=== PATIENT | female | born 1955 | race Caucasian/White ===

== ENCOUNTER 2016-12-11 14:08 | Day surgery (SDC) | payer MEDICAID, OTHER ==
[~2016-12-11] VITALS: Ht 152.4 cm; Wt 78.5 kg
[2016-12-11 14:56] VITALS: Ht 152.4 cm; Wt 78.5 kg
[2016-12-11 15:27] VITALS: BP 151/80; PULSE 64; RESP 18
[2016-12-11] MEDS ORDERED: FENTAnyl 50 MCG/ML VIAL ONE (15:53)
[2016-12-11] MEDS ORDERED: MIDAZOLAM 1 MG/ML 2 ML INJ ONE (15:54)
--- NOTE | 2016-12-11 15:58 | OPPN ---
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
--- NOTE | 2016-12-12 09:40 | GILP ---
DATE OF PROCEDURE: 12/11/2016 PREOPERATIVE DIAGNOSIS: Patient had rectal pain. She felt a mass in the rectum. PROCEDURE PERFORMED: 1. Colonoscopy. 2. Biopsy of the ileocecal valve. POSTOPERATIVE DIAGNOSIS: Prominent ileocecal valve, lipoma suspected. Rectum, no mass, but grade 1 external hemorrhoids. Rest of the colon normal. DESCRIPTION OF PROCEDURE: Patient was put in left lateral decubitus. After obtaining informed consent, patient was sedated and monitored on oximetry, EKG, blood pressure. She was given 2 mg IV Versed initially and 50 mcg of fentanyl. I then advanced a pediatric Olympus video colonoscope all the way to cecum. Ileocecal was quite prominent and this had pillow sign positive, very soft, indicating this is lipoma possibly, multiple biopsies were done and examination of the ascending colon, cecum otherwise unremarkable. Hepatic flexure, transverse colon normal. Descending colon normal. Sigmoid colon, rectum normal. In the rectum, rectal exam digitally also done again, no mass was felt. Some external hemorrhoids, grade 1 noted. Retroflexion also done, no mass was seen. Upon removal of scope, patient had no complication. If symptoms continue, will do a CT scan. Meanwhile, follow in 2 weeks for biopsy report of the ileocecal valve and repeat colonoscopy in five years. Dictated By: Guanako Steve MD /any/colton /Document#: [id number] ; Dr. Paul Tinsley
== END 2016-12-11 16:15 | disposition home or self-care (01) ==
LOC: GIL 14:08
PROVIDERS: ATTEND Internal Medicine
DX: K64.4 Residual hemorrhoidal skin tags (principal); E78.5 Hyperlipidemia, unspecified
CPT/HCPCS: 45380; 88305; J2250; J3010; Z7610

== ENCOUNTER 2018-06-11 10:41 | Emergency (ER) | payer OTHER ==
[~2018-06-11] VITALS: Ht 160 cm; Wt 82.6 kg
[2018-06-11 11:09] VITALS: Ht 160 cm; Wt 82.6 kg
[2018-06-11 14:17] VITALS: BP 155/66; PULSE 60; RESP 16
[2018-06-11] MEDS ORDERED: ASPIRIN 81 MG TAB PO STA (14:31)
[2018-06-11] MEDS ORDERED: MECLIZINE 12.5 MG TAB PO ONE (15:00)
[2018-06-11] MEDS ORDERED: DONE5TAB53 PO (16:02)
[2018-06-11] MEDS ORDERED: ATOR40TA68 PO (16:02)
[2018-06-11] MEDS ORDERED: BENA10TA4 PO (16:02)
[2018-06-11] MEDS ORDERED: MECL12.574 PO (16:20)
--- NOTE | 2018-06-11 16:21 | ERD ---
ER Documentation Chief Complaint Chief Complaint dizziness and chest pain this morning at 0400, HPI 62-year-old female with a history of hypertension presenting with acute onset of dizziness that started this morning when she woke up around 4 AM. She describes the dizziness as room spinning with difficulty balancing. The dizziness has been going on with position change or with movement. When she sits or lays still, she does not feel dizzy at all. She did have one episode of chest discomfort that lasted for a few hours in the center of her chest that she does not describe as pain but that is described as discomfort. She denies any associated shortness of breath or diaphoresis. She did have multiple episodes of nonbloody and nonbilious vomiting. Denies diarrhea or constipation. No tenderness, focal weakness or numbness, vision disturbance ROS All systems reviewed and are negative except as per history of present illness. Medications Home Meds Active Scripts Meclizine Hcl* (Antivert*) 12.5 Mg Tab, 25 MG PO Q6H PRN for DIZZINESS, #20 TAB Prov:MARCUS CARLSON MD 06/11/18 Reported Medications Donepezil* (Aricept*) 5 Mg Tablet, 5 MG PO BID, TAB 06/11/18 Benazepril Hcl* (Benazepril Hcl*) 10 Mg Tablet, 10 MG PO DAILY, #30 TAB 06/11/18 Atorvastatin* (Atorvastatin*) 40 Mg Tablet, 40 MG PO QHS, #30 TAB 06/11/18 Discontinued Reported Medications [None] No Conflict Check 12/11/16 Allergies Allergies: Coded Allergies: No Known Allergy (Unverified , 06/11/18) PMhx/Soc History of Surgery: Yes (TUBAL LIGATION) Anesthesia Reaction: No Hx Neurological Disorder: No Hx Respiratory Disorders: No Hx Cardiac Disorders: Yes (HLD) Hx Psychiatric Problems: No Hx Miscellaneous Medical Probl: Yes (early dementia) Hx Alcohol Use: No Hx Substance Use: No Hx Tobacco Use: No Smoking Status: Never smoker FmHx Family History: No diabetes Physical Exam Vitals Vital Signs Date Temp Pulse Resp B/P (MAP) Pulse Ox O2 O2 Flow FiO2 Time Delivery Rate 06/11/18 60 16 155/66 96 Room Air 14:17 (95) 06/11/18 97.7 56 18 137/87 99 11:09 (104) Physical Exam Const: No acute distress, well-appearing, nontoxic Head: Atraumatic Eyes: Normal Conjunctiva, PERRLA, EOMI, no nystagmus ENT: Normal External Ears, Nose and Mouth. Neck: Full range of motion. No meningismus. Resp: Clear to auscultation bilaterally Cardio: Regular rate and rhythm, no murmurs. 2+ distal pulses in all 4 extremities Abd: Soft, non tender, non distended. Normal bowel sounds Skin: No petechiae or rashes Back: No midline or flank tenderness Ext: No cyanosis, or edema Neur: Awake and alert, oriented x3, cranial nerves intact, strength and sensations intact in all 4 extremities. Gait not initially tested as the patient became very dizzy with sitting upright.. Psych: Normal Mood and Affect Result Diagram: 06/11/18 1435 06/11/18 1435 Results 24 hrs Laboratory Tests Test 06/11/18 14:35 White Blood Count 8.9 10^3/ul Red Blood Count 4.52 10^6/ul Hemoglobin 14.0 g/dl Hematocrit 42.4 % Mean Corpuscular Volume 93.8 fl Mean Corpuscular Hemoglobin 31.0 pg Mean Corpuscular Hemoglobin Concent 33.0 g/dl Red Cell Distribution Width 12.9 % Platelet Count 164 10^3/UL Mean Platelet Volume 10.9 fl Immature Granulocytes % 0.400 % Neutrophils % 85.9 % Lymphocytes % 11.6 % Monocytes % 1.9 % Eosinophils % 0.0 % Basophils % 0.2 % Nucleated Red Blood Cells % 0.0 /100WBC Immature Granulocytes # 0.040 10^3/ul Neutrophils # 7.6 10^3/ul Lymphocytes # 1.0 10^3/ul Monocytes # 0.2 10^3/ul Eosinophils # 0.0 10^3/ul Basophils # 0.0 10^3/ul Nucleated Red Blood Cells # 0.0 10^3/ul Sodium Level 142 mmol/L Potassium Level 4.1 mmol/L Chloride Level 103 mmol/L Carbon Dioxide Level 27 mmol/L Anion Gap 12 Blood Urea Nitrogen 18 mg/dl Creatinine 0.65 mg/dl Est Glomerular Filtrat Rate mL/min > 60 mL/min Glucose Level 149 mg/dl Calcium Level 9.8 mg/dl Troponin I < 0.012 ng/ml Current Medications Medications Dose Sig/Betito Start Time Status Last (Trade) Ordered Route PRN Stop Time Admin Dose Reason Admin Aspirin 162 mg ONCE STAT 06/11/18 DC 06/11/18 (Aspirin) PO 14:31 14:47 06/11/18 14:32 Meclizine 25 mg ONCE ONCE 06/11/18 DC 06/11/18 HCl PO 15:00 14:49 (Antivert) 06/11/18 15:01 Procedures/MDM EMERGENT LABS AND DIAGNOSTIC STUDIES: Lab Results above were reviewed and interpreted by me. CBC: no anemia or evidence of infection BMP:no e/o severe acidosis, alkalosis, renal failure, diabetic ketoacidosis, or electrolyte abnormality Troponin within normal limits, not indicative of cardiac ischemia 12-lead EKG was interpreted by Robin Carlson MD: Sinus bradycardia at 59 bpm Normal axis Normal intervals No arrhythmia, no acute ST or T wave changes suggestive of acute ischemia or STEMI. Radiology Results as interpreted by Radiology below were reviewed by Sandra Carlson MD: Chest x-ray shows no acute abnormalities Initial Nursing notes reviewed. Previous Medical Records requested via the Electronic Health Record. EMERGENCY DEPARTMENT COURSE / MEDICAL DECISION MAKING: Patient presents with positional vertigo and complaints of chest pain that has now resolved. Vitals were relatively normal upon arrival and she was afebrile. She is neurologically intact on exam. I have a low suspicion for CVA, central vertigo, intracranial hemorrhage, acute coronary syndrome, aortic dissection, carotid dissection, or pulmonary embolism. Patient was treated with meclizine with improvement of her symptoms. I stood her up and had her walk in the ER with a normal and steady gait. She states that she does feel much better. Her chest pain workup was unremarkable as well. I do not feel any repeat troponin testing is necessary as her pain started several hours ago and her troponin is negative and EKG does not show acute ischemia. Additionally, I have a low suspicion for ischemic chest pain. I feel the patient is stable for discharge with continued outpatient follow-up as needed. Prescription for meclizine given. Strict return precautions discussed. Rest and hydration recommended. Patient's blood pressure was elevated (>120/80) but appears stable without evidence of hypertensive emergency or urgency. The patient was counseled about the risks of hypertension and urged to pursue outpatient monitoring and therapy within a week with their primary care physician. Departure Diagnosis: Primary Impression: Peripheral positional vertigo Laterality: unspecified laterality Qualified Codes: H81.399 - Other peripheral vertigo, unspecified ear Additional Impression: Chest discomfort Condition: Stable Patient Instructions: Benign Positional Vertigo, Chest Pain, Uncertain Cause MARCUS CARLSON MD Jun 11, 2018 16:21
== END 2018-06-11 16:33 | disposition home or self-care (01) ==
LOC: E/R 10:41
DX: H81.399 Other peripheral vertigo, unspecified ear (principal); R07.89 Other chest pain; R40.2142 Coma scale, eyes open, spontaneous, at arrival to emergency department; R40.2362 Coma scale, best motor response, obeys commands, at arrival to emergency department; R40.2252 Coma scale, best verbal response, oriented, at arrival to emergency department; I10 Essential (primary) hypertension
CPT/HCPCS: 36415; 71045; 80048; 84484; 85025; 93005; Z7502; Z7610